=== PATIENT | female | born 1965 | race Caucasian/White ===

== ENCOUNTER 2017-10-20 21:29 | Emergency (ER) | payer OTHER ==
[~2017-10-20] VITALS: Ht 160 cm; Wt 81.8 kg
[2017-10-20] MEDS ORDERED: CHOL200016 PO (21:49)
[2017-10-20] MEDS ORDERED: ASPI81 PO (21:49)
[2017-10-20] MEDS ORDERED: LISI-660 PO (21:49)
[2017-10-20] MEDS ORDERED: EMPA10TA PO (21:49)
[2017-10-20] MEDS ORDERED: METF850T2 PO (21:49)
[2017-10-20 21:53] LABS: GLUCOSE,POINT OF CARE 117 MG/DL (70-110)
[2017-10-20 22:14] LABS: LYMPHOCYTES # (AUTO) 1.9 K/uL (1.0-4.8); MONOCYTES # (AUTO) 0.3 K/uL (0.1-1.0)
[2017-10-20 22:18] LABS: BASOPHILS # (AUTO) 0.02 K/uL (0.00-0.20); BASOPHILS % (AUTO) 0.7 % (0.0-2.0); EOSINOPHILS # (AUTO) 0.05 K/uL (0.00-0.70); HEMATOCRIT 41.2 % (36-46); HEMOGLOBIN 13.9 g/dL (12.0-16.0); LYMPHOCYTES % (AUTO) 66.4 % (22.0-44.0); MEAN CORPUSCULAR HEMOGLOBIN 30.2 pg (26.0-34.0); MEAN CORPUSCULAR HGB CONC 33.9 G/dL (31.0-37.0); MEAN CORPUSCULAR VOLUME 89 fL (80-100); MONOCYTES % (AUTO) 10.5 % (2.0-9.0); NEUTROPHILS # (AUTO) 0.6 K/uL (1.8-7.7); NEUTROPHILS % (AUTO) 20.8 % (40.0-70.0); PLATELET COUNT (AUTO) 140 K/uL (150-450); RED BLOOD CELL COUNT(AUTO) 4.62 MIL/uL (4.00-5.20); RED CELL DISTRIBUTION WIDTH 13.8 % (11.5-14.5)
[2017-10-20 22:27] LABS: ANION GAP 8 mmol/L (8-16); CALCIUM, TOTAL 9.2 mg/dL (8.8-10.5); CARBON DIOXIDE 30 mmol/L (22-29); CHLORIDE 98 mmol/L (98-107); CREATININE 0.74 mg/dL (0.60-1.30); GLOMERULAR FILTR. RATE CALC > 60 mL/min (>60); GLUCOSE,RANDOM 124 mg/dL (70-110); POTASSIUM 3.1 mmol/L (3.5-5.1); SODIUM SERUM 136 mmol/L (136-145); UREA NITROGEN, BLOOD 11 mg/dL (7-18)
[2017-10-20 22:30] LABS: ALANINE AMINOTRANSFERASE 24 U/L (12-78); ALBUMIN 3.8 g/dL (3.4-5.0); ALKALINE PHOSPHATASE 80 U/L (46-116); ASPARTATE AMINOTRANSFERASE 30 U/L (15-37); BILIRUBIN,TOTAL 0.3 mg/dL (0.1-1.0); LIPASE 86 U/L (73-393); TOTAL PROTEIN, SERUM 8.3 g/dL (6.4-8.2)
[2017-10-21] MEDS ORDERED: IPRATROPIUM BROMIDE 0.5 MG/2.5 ML NEB SOLUTION NEB ONE
[2017-10-21] MEDS ORDERED: PROMETHAZINE HCL/CODEINE 6.25-10MG/5ML SYRUP UDCUP PO ONE
[2017-10-21] MEDS ORDERED: ALBUTEROL SULFATE 2.5 MG/0.5 ML NEB SOLUTION NEB ONE
[2017-10-21 02:12] LABS: INFLUENZA TYPE A NEGATIVE FOR TYPE A (NEGATIVE); INFLUENZA TYPE B NEGATIVE FOR TYPE B (NEGATIVE)
[2017-10-21 02:35] VITALS: BP 110/60
== END 2017-10-21 02:54 | disposition home or self-care (01) ==
LOC: EMS 21:32
DX: B34.9 Viral infection, unspecified (principal); E11.9 Type 2 diabetes mellitus without complications; I10 Essential (primary) hypertension; Z79.82 Long term (current) use of aspirin
CPT/HCPCS: 71045; 80053; 82962; 83690; 85025; 87804; 94640; 99285; J7613

== ENCOUNTER 2023-12-11 05:31 | Day surgery (SDC) | payer OTHER ==
[~2023-12-11 05:31] MED LIST: ATOR-2 PO; CYCLOPENTOLATE HCL 1% 2 ML OPHTHALMIC SOLUTION ONE; KETOROLAC TROMETHAMINE 0.5% 5 ML OPHTHALMIC SOLUTION ONE; METF-446 PO; MOXIFLOXACIN HCL 0.5% 3 ML OPHTHALMIC SOLUTION ONE; PHENYLEPHRINE HCL 2.5% 2 ML OPHTHALMIC SOLUTION ONE; RINGERS SOLUTION,LACTATED 500 ML IV ONE; TETRACAINE HCL/PF 0.5% 4 ML OPHTHALMIC SOLUTION ONE; TROPICAMIDE 1% 2 ML OPHTHALMIC SOLUTION ONE
[2023-12-11] MEDS ORDERED: FentaNYL CITRATE PF 100 MCG/2 ML VIAL IVP ONE (05:32)
[2023-12-11] MEDS ORDERED: MIDAZOLAM HCL 2 MG/2 ML VIAL IVP ONE (05:32)
[2023-12-11] MEDS ORDERED: HYALURONATE SOD 8.5MG/0.85ML 10 MG/ML SYRINGE IO ONE (05:32)
[2023-12-11] MEDS ORDERED: BALANCED SALT 15 ML OPHTHALMIC IRRIG.SOLN IO ONE (05:32)
[2023-12-11] MEDS: CYCLOPENTOLATE HCL 1% 2 ML OPHTHALMIC SOLUTION OS SCH (06:11)
[2023-12-11] MEDS: TROPICAMIDE 1% 2 ML OPHTHALMIC SOLUTION OS SCH (06:11)
[2023-12-11] MEDS: KETOROLAC TROMETHAMINE 0.5% 5 ML OPHTHALMIC SOLUTION OS SCH (06:11)
[2023-12-11] MEDS: PHENYLEPHRINE HCL 2.5% 2 ML OPHTHALMIC SOLUTION OS SCH (06:12)
[2023-12-11] MEDS: TETRACAINE HCL/PF 0.5% 4 ML OPHTHALMIC SOLUTION OS ONE (06:13)
[2023-12-11] MEDS: MOXIFLOXACIN HCL 0.5% 3 ML OPHTHALMIC SOLUTION OS SCH (06:14)
[2023-12-11] MEDS ORDERED: PrednisoLONE ACETATE 1% 5 ML OPHTHALMIC SUSPENSION ONE (06:17)
[2023-12-11] MEDS ORDERED: POVIDONE-IODINE 5% 30 ML OPHTHALMIC SOLUTION ONE (06:22)
[2023-12-11] MEDS ORDERED: BALANCED SALT 15 ML OPHTHALMIC IRRIG.SOLN ONE (06:23)
[2023-12-11] MEDS ORDERED: PROPARACAINE HCL 0.5% 15 ML OPHTHALMIC SOLUTION ONE (06:23)
[2023-12-11] MEDS: RINGERS SOLUTION,LACTATED 500 ML IV ONE (06:46)
[2023-12-11 06:55] LABS: GLUCOMETER DEV NAME(LOC) SDS.; GLUCOSE,POINT OF CARE 175 MG/DL (70-110)
[2023-12-11] MEDS: EPINEPHrine 1:1,000 [1 MG/ML] VIAL ONE (07:35)
[2023-12-11] MEDS: LIDOCAINE/PF 1% 2 ML VIAL ONE (07:35)
== END 2023-12-11 08:40 | disposition home or self-care (01) ==
LOC: SURGERY 05:31
PROVIDERS: ATTEND Ophthalmology
DX: E11.36 Type 2 diabetes mellitus with diabetic cataract (principal); H25.12 Age-related nuclear cataract, left eye; I10 Essential (primary) hypertension; Z98.890 Other specified postprocedural states; E78.00 Pure hypercholesterolemia, unspecified; Z87.440 Personal history of urinary (tract) infections
CPT/HCPCS: 66984; 82962; 93005; J0171; J3010; J3490; J2250; Q9967; J7120; V2632